=== PATIENT | female | born 2000 | race Caucasian/White ===

== ENCOUNTER 2018-09-14 12:34 | Emergency (ER) | payer SELFPAY ==
[2018-09-14] MEDS ORDERED: predniSONE 20 MG TAB PO ONE (12:48)
[2018-09-14] MEDS ORDERED: AMOXICILLIN & POT CLAVULANATE 875 MG TAB PO ONE (12:48)
[2018-09-14 12:49] VITALS: BP 107/73; TEMP 98.2; O2SAT 98
--- NOTE | 2018-09-14 12:50 | ED.PDOC ---
History of Present Illness - General Chief Complaint: ENT Problem Stated Complaint: sore throat Time Seen by Provider: 09/14/18 12:44 Source: patient Exam Limitations: no limitations - History of Present Illness Initial Comments: the patient a 18-year-old female presenting to the emergency room secondary to symptoms of tonsillitis/pharyngitis for the last 3 days. She has had a history of recurrent streptococcal and tonsillitis infections. She reports that she was supposed to have her tonsils removed 6 years ago due to insurance reasons she has been unable to get it done. She reports low-grade fevers. She has some pain with swallowing but is able to swallow and is breathing okay at this point. Tonsils are almost touching posteriorly and they do have exudates. no evidence of sepsis. she is well hydrated. No distress otherwise. Timing/Duration: other - 3 days Severity: moderate Improving Factors: nothing Worsening Factors: nothing Associated Symptoms: malaise Allergies/Adverse Reactions: Allergies NO KNOWN ALLERGY Allergy (Verified 03/29/16 08:50) Home Medications: Ambulatory Orders Amoxicillin & Pot Clavulanate [Augmentin Tab] 875 mg PO BID #20 tab 09/14/18 predniSONE [Prednisone] 20 mg PO DAILY #3 tab 09/14/18 Review of Systems - Review of Systems Constitutional: States: fever, malaise EENTM: States: throat pain Respiratory: States: no symptoms reported Cardiology: States: no symptoms reported Gastrointestinal/Abdominal: States: no symptoms reported Genitourinary: States: no symptoms reported Musculoskeletal: States: no symptoms reported Skin: States: no symptoms reported Neurological: States: no symptoms reported Endocrine: States: no symptoms reported All other Systems: No Change from Baseline Past Medical History (General) - Patient Medical History Hx Congestive Heart Failure: No Hx Diabetes: No Physical Exam - Physical Exam General Appearance: Alert, No apparent distress Eye Exam: bilateral normal Ears, Nose, Throat: hearing grossly normal, other - see history of present illness. 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 The patient will be empirically placed on Augmentin for 10 days and prednisone 20 mg daily for the next 3 days. She did receive her first dose is here today. She does need to keep follow- up with ENT for her tonsillectomy. ER warnings are given. Keep well hydrated. Departure - Departure Clinical Impression: Tonsillitis Disposition: Discharge to Home or Self Care Condition: Fair Departure Forms: ED Discharge - Pt. Copy, Patient Portal Self Enrollment Instructions: Sore Throat, Adult (DC) Diet: regular diet Activity: increase activity as tolerated Referrals: GARRICK ORTIZ [Primary Care Provider] - 1-2 Weeks Prescriptions: Amoxicillin & Pot Clavulanate [Augmentin Tab] 875 mg PO BID #20 tab predniSONE [Prednisone] 20 mg PO DAILY #3 tab Home Medications: Ambulatory Orders Amoxicillin & Pot Clavulanate [Augmentin Tab] 875 mg PO BID #20 tab 09/14/18 predniSONE [Prednisone] 20 mg PO DAILY #3 tab 09/14/18 Additional Instructions: the patient is a 18-year-old female presenting to the emergency room secondary to another episode of tonsillitis. The patient will be empirically placed on Augmentin for 10 days and prednisone 20 mg daily for the next 3 days. She did receive her first dose is here today. She does need to keep follow- up with ENT for her tonsillectomy. ER warnings are given. Keep well hydrated.
== END 2018-09-14 13:15 | disposition home or self-care (01) ==
LOC: ER 12:34
DX: J03.90 Acute tonsillitis, unspecified (principal)